=== PATIENT | male | born 1985 | race Caucasian/White ===

== ENCOUNTER 2019-08-12 18:28 | Emergency (ER) | payer BC, SELFPAY ==
[2019-08-12 18:29] VITALS: BP 143/97; PULSE 96; RESP 18; TEMP 36.6; O2SAT 98; BMI 40.0
[2019-08-12 19:10] LABS: UTC Influenza A Antigen Negative (Negative); UTC Influenza B Antigen Negative (Negative)
--- NOTE | 2019-08-12 19:22 | HMH.EDUTC ---
[facility] [place] Disposition Clinical Impression: Sore throat Sinusitis Qualifiers: Sinusitis location: unspecified location Chronicity: unspecified Qualified Code(s): J32.9 - Chronic sinusitis, unspecified Disposition: Home, Self-Care Condition on Discharge: Good Instructions: Sinusitis, Sinus Headache, DI for Sinusitis, DI for Cough -- Adult Additional Instructions: Start antibiotic. Sinus infections may take 2-3 days to notice much improvement so be sure to use conservative measures as discussed for symptoms Ok to continue Sudafed Flonase 2 spray in each nostril daily to help with nasal congestion, sinus an ear pressure/inflammation Lots of Fluids Sleep elevated Humidifer/vaporizer Augmentin can cause GI effects. Probiotics may help to prevent these symptoms Follow up with family doctor if no improvement or any worsening of symptoms *Monitor Temp, Over the counter Motrin or Tylenol as directed/as needed Tylenol every 4 hours and Motrin every 6 hours (as long as your family doctor has told you that you can take it) for fever or pain. and straight to ER if unable to lower temp less than 101.0 after medication given *Warm salt water gargles may help to soothe the throat *Throat Lozenges *Warm fluids *Sleep elevated *Humidifier/Vaporizer Follow up IMMEDIATELY for new or worsening symptoms or no Noticeable improvement over the next 48-72 hours. 911 for difficulty breathing or swallowing Prescriptions: Amoxicillin/Potassium Clav [Augmentin 875-125 Tablet] 1 tab PO Q12H 10 Days #20 tab Transmission Status: Pending to [facility] [place], [place] predniSONE [Prednisone 20mg Tab] 20 mg PO BID 5 Days #10 tab Transmission Status: Pending to [facility] [place], [place] Referrals: Nelson Schmitz [Primary Care Provider] - As needed Time of Disposition: 19:27 Medical Decision Making - Ray Inquiry Pt receiving controlled substance: No Ray was queried for this patient: No Vital Signs: 08/12/19 18:29 Temperature 97.9 F Temperature Source Oral Pulse Rate [Radial] 96 H Respiratory Rate 18 Blood Pressure [Right Arm] 143/97 H Blood Pressure Mean [Right Arm] 112 Blood Pressure Source [Right Arm] Automatic Cuff Blood Pressure Position [Right Arm] Sitting 02 Sat by Pulse Oximetry 98 Oxygen Delivery Method Room Air - Lab Data Lab results reviewed: Yes: I reviewed the patient's lab results. Lab Results 08/12/19 18:58: Influenza Type A Ag Negative, Influenza Type B Ag Negative [facility] [place] HPI - General Stated complaint: cough congestion headache Time Seen by Provider: 08/12/19 19:22 Mode of Arrival: Ambulatory Source of Information: Patient Limitations: No Limitations Description of Symptoms (Recalled from Triage Doc. by RN): COUGH, SORE THROAT, PRESSURE BEHIND EYES HEENT Symptoms (Recalled from RN notes): Yes Resp Symptoms (Recalled from RN notes): No Skin Symptoms (Recalled from RN notes): No MS Symptoms (Recalled from RN notes): No Functional Status (Recalled from RN notes): WNL - History of Present Illness Provider Complaint: Patient states that he has been having sinus pain and pressure, sore throat, drainage in the back of his throat and feeling like he has been ill for a couple of weeks and continued to get worse States that he was worried that he may have flu and wanted to get checked because he has a daughter at home - Related Data Home Medications Medication Instructions Recorded Confirmed OXcarbazepine [Oxcarbazepine] 300 mg PO TID 01/29/18 01/29/18 Topiramate 50 mg PO BID 01/29/18 01/29/18 Topiramate 100 mg PO BID 01/29/18 01/29/18 Previous Rx's Medication Instructions Recorded Amoxicillin/Potassium Clav 1 tab PO Q12H 10 Days #20 tab 08/12/19 [Augmentin 875-125 Tablet] predniSONE [Prednisone 20mg 20 mg PO BID 5 Days #10 tab 08/12/19 Tab] Allergies Allergy/AdvReac Type Severity Reaction Status Date / Time No Known Allergies Allergy Verified 01/29/18 2
[2019-08-12 19:36] VITALS: BP 143/97; PULSE 96; RESP 18; TEMP 36.6; O2SAT 98
== END 2019-08-12 19:36 | disposition home or self-care (01) ==
PROVIDERS: Emergency Provider Nurse Practitioner; PCP Nurse Practitioner Family
DX: J32.9 Chronic sinusitis, unspecified (principal)
CPT/HCPCS: 87804; 99201

== ENCOUNTER 2021-04-19 15:38 | Emergency (ER) | payer BC, SELFPAY ==
[2021-04-19 17:53] VITALS: BP 142/95; PULSE 72; RESP 18; TEMP 37.1; O2SAT 100; BMI 40.0
--- NOTE | 2021-04-19 17:59 | HMH.EDUTC ---
[facility] [place] Disposition Clinical Impression: Sinusitis Qualifiers: Sinusitis location: unspecified location Chronicity: acute Recurrence: non-recurrent Qualified Code(s): J01.90 - Acute sinusitis, unspecified Disposition: Home, Self-Care Condition on Discharge: Good Instructions: DI for Sinusitis, Preventing the Spread of Coronavirus Discharge Instructions, DI for COVID-19 (Suspected or Confirmed ) Additional Instructions: Drink plenty of fluids. Take tylenol or ibuprofen for pain or fever. Take the medications as directed. Follow up with your regular doctor. GO TO THE ER FOR ANY WORSENING SYMPTOMS Quarantine until you know the results of your covid-19 test. If it is positive, the health department should call you and give you further instructions about your length of Quarantine and other things. Notify your school or workplace of your results and follow their instructions regarding return to work/school. Prescriptions: Brompheniramine/Pseudoephed/Dm [Bromfed Dm Cough Syrup] 5 ml PO Q6HP PRN #240 ml PRN Reason: Cough Transmission Status: Pending to [facility] predniSONE [Deltasone 10mg tablet] 10 mg PO BID 3 Days #6 tab Transmission Status: Pending to [facility] Azithromycin [Z-John 250mg Tab*] 250 mg PO UD DOSE PK #6 tab Transmission Status: Pending to [facility] Referrals: Nelson Schmitz [Primary Care Provider] - Forms: Work/School Release Time of Disposition: 18:08 Medical Decision Making - Medical Records Medical records reviewed: No: I reviewed the patient's medical records. - Ary Inquiry Pt receiving controlled substance: No Vital Signs: 04/19/21 17:53 Temperature 98.7 F Temperature Source Oral Pulse Rate [Right Radial] 72 Respiratory Rate 18 Blood Pressure [Right Arm] 142/95 H Blood Pressure Mean [Right Arm] 110 Blood Pressure Source [Right Arm] Automatic Cuff Blood Pressure Position [Right Arm] Sitting 02 Sat by Pulse Oximetry 100 Oxygen Delivery Method Room Air Orders (Tests/Meds): ORDERS Category Date Time Status Covid-19 Nasal PCR ([facility]) Routine Lab 04/19/21 17:55 Ordered [facility] [place] HPI - General Stated complaint: sore throat,congestion,runny nose Time Seen by Provider: 04/19/21 17:59 Mode of Arrival: Ambulatory Source of Information: Patient Limitations: No Limitations Description of Symptoms (Recalled from Triage Doc. by RN): C/O runny nose, sore and scratchy throat and congestion x2-3 days HEENT Symptoms (Recalled from RN notes): Yes (sore throat, runny nose, congestion) Resp Symptoms (Recalled from RN notes): No Skin Symptoms (Recalled from RN notes): No MS Symptoms (Recalled from RN notes): No Functional Status (Recalled from RN notes): n/a - History of Present Illness Provider Complaint: He states that for the past 2 days he has had a runny nose, sinus congestion and he has felt bad. He denies any known covid exposure. His has had similar symptoms at his home. - Related Data Home Medications Medication Instructions Recorded Confirmed OXcarbazepine [Oxcarbazepine] 300 mg PO TID 01/29/18 01/29/18 Topiramate 50 mg PO BID 01/29/18 01/29/18 Topiramate 100 mg PO BID 01/29/18 01/29/18 Previous Rx's Medication Instructions Recorded Amoxicillin/Potassium Clav 1 tab PO Q12H 10 Days #20 tab 08/12/19 [Augmentin 875-125 Tablet] predniSONE [Prednisone 20mg 20 mg PO BID 5 Days #10 tab 08/12/19 Tab] Azithromycin [Z-John 250mg Tab*] 250 mg PO UD DOSE PK #6 tab 04/19/21 Brompheniramine/Pseudoephed/Dm 5 ml PO Q6HP PRN #240 ml 04/19/21 [Bromfed Dm Cough Syrup] predniSONE [Deltasone 10mg tablet] 10 mg PO BID 3 Days #6 tab 04/19/21 Allergies Allergy/AdvReac Type Severity Reaction Status Date / Time No Known Allergies Allergy Verified 01/29/18 21:51 - Worker's Comp Is this a Worker's Comp case?: No [facility] History - Hepatitis A Screen Drug use history?: No High risk sexual behaviors?: No History of sexua
[2021-04-19 18:11] VITALS: BP 142/95; PULSE 72; RESP 18; TEMP 37.1; O2SAT 100
[2021-04-20 21:12] LABS: UTC Strep Screen (Rapid) Negative (Negative)
== END 2021-04-19 18:12 | disposition home or self-care (01) ==
LOC: UTC 18:18
PROVIDERS: Emergency Provider Nurse Practitioner Family; PCP Nurse Practitioner Family
DX: J01.90 Acute sinusitis, unspecified (principal); Z20.822 Contact with and (suspected) exposure to COVID-19
CPT/HCPCS: 87880; 99203; G0463; U0003

== ENCOUNTER → 2021-05-08 14:26 | Outpatient (CLI) | payer BC, SELFPAY | PROVIDERS: Visit Provider Nurse Practitioner | DX: Z20.822 Contact with and (suspected) exposure to COVID-19 (principal); U07.1 COVID-19 | CPT/HCPCS: C9803; U0003; U0005 ==

== ENCOUNTER 2022-04-06 16:19 | Emergency (ER) | payer BC, SELFPAY ==
[2022-04-06 17:25] VITALS: BP 151/98; PULSE 116; RESP 18; TEMP 37.5; O2SAT 98; BMI 41.2
[2022-04-06 17:46] LABS: UTC Strep Screen (Rapid) Negative (Negative)
--- NOTE | 2022-04-06 17:47 | HMH.EDUTC ---
[facility] [place] Disposition Clinical Impression: Viral upper respiratory tract infection Disposition: Home, Self-Care Condition on Discharge: Good Instructions: DI for Viral Upper Respiratory Infection -- Adult, DI for COVID-19 (Suspected or Confirmed ), Preventing the Spread of Coronavirus Discharge Instructions, DI for Fever (Symptom) -- Adult Additional Instructions: *Monitor Temp, Over the counter Motrin or Tylenol as directed/as needed Tylenol every 4 hours and Motrin every 6 hours (as long as your family doctor has told you that you can take it) for fever or pain. and straight to ER if unable to lower temp less than 101.0 after medication given *Warm salt water gargles may help to soothe the throat *Throat Lozenges *Warm fluids like tea with honey may help to soothe the throat *Sleep elevated *Humidifier/Vaporizer Your throat swab was sent for culture. Those results are typically sent to your primary care. Be sure to follow up in 2-3 days with your family doctor/primary care physician if no improvement so they can review those result and treat if necessary. If you don?t have a primary care doctor, I recommend you get one but in the mean time, you will have to return to a walk in clinic Follow up IMMEDIATELY for new or worsening symptoms or no Noticeable improvement over the next 48-72 hours. 911 for difficulty breathing or swallowing You were tested for today for COVID19 your test result should be back in the next 24-48 hours, you may check your results on the [facility] My Health Portal Make sure to take your Vitamins Vit. C Vit D and Zinc if you can take them Referrals: Nelson Schmitz APRN [Primary Care Provider] - As needed Forms: Work/School Release Time of Disposition: 17:58 Medical Decision Making - Ray Inquiry Pt receiving controlled substance: No Ray was queried for this patient: No Vital Signs: 04/06/22 17:25 Temperature 99.5 F Temperature Source Oral Pulse Rate [Right Brachial] 116 H Respiratory Rate 18 Blood Pressure [Right Arm] 151/98 H Blood Pressure Mean [Right Arm] 115 Blood Pressure Source [Right Arm] Automatic Cuff Blood Pressure Position [Right Arm] Sitting 02 Sat by Pulse Oximetry 98 Oxygen Delivery Method Room Air - Lab Data Lab results reviewed: Yes: I reviewed the patient's lab results. Lab Results 04/06/22 17:35: Strep Scn Rapid Clinic Negative Orders (Tests/Meds): ORDERS Category Date Time Status Covid-19 Nasal PCR ([facility]) Routine Lab 04/06/22 17:50 Received Strep Screen Confirmation Stat Micro 04/06/22 17:35 Received [facility] UTC HPI - General Stated complaint: sore throat, cough charley Time Seen by Provider: 04/06/22 17:48 Mode of Arrival: Ambulatory Source of Information: Patient Limitations: No Limitations Description of Symptoms (Recalled from Triage Doc. by RN): PATIENT C/O SORE THROAT AND CONGESTION SINCE THIS MORNING HEENT Symptoms (Recalled from RN notes): Yes Resp Symptoms (Recalled from RN notes): No Skin Symptoms (Recalled from RN notes): No MS Symptoms (Recalled from RN notes): No Functional Status (Recalled from RN notes): WNL - History of Present Illness Provider Complaint: Patient state that he has been having sore throat, nasal congestion, low grade fever and body aches States that he was worried he may have strep throat or COVID so he came in to get checked out - Related Data Home Medications Medication Instructions Recorded Confirmed OXcarbazepine [Oxcarbazepine] 300 mg PO TID 01/29/18 04/06/22 Topiramate 50 mg PO BID 01/29/18 04/06/22 Topiramate 100 mg PO BID 01/29/18 04/06/22 Allergies Allergy/AdvReac Type Severity Reaction Status Date / Time No Known Allergies Allergy Verified 01/29/18 21:51 - Worker's Comp Is this a Worker's Comp case?: No [facility] History - Hepatitis A Screen Attestation statement:: This patient has been screened for Hepatitis A risk factors. I have reviewed the patient's past medical history: Yes
[2022-04-06 18:10] VITALS: BP 151/98; PULSE 116; RESP 18; TEMP 37.5; O2SAT 98
== END 2022-04-06 18:15 | disposition home or self-care (01) ==
PROVIDERS: Emergency Provider Nurse Practitioner; PCP Nurse Practitioner Family
DX: U07.1 COVID-19 (principal)
CPT/HCPCS: 87880; 99212; C9803; G0463; U0003; U0005

== ENCOUNTER 2022-07-03 09:10 | Emergency (ER) | payer BC, SELFPAY ==
[2022-07-03 10:30] VITALS: BP 133/93; PULSE 139; RESP 22; TEMP 37.9; O2SAT 100; BMI 40.1
[2022-07-03 10:45] VITALS: TEMP 39.1
[2022-07-03 10:51] LABS: UTC Influenza A Antigen Negative (Negative); UTC Influenza B Antigen Negative (Negative)
--- NOTE | 2022-07-03 10:53 | EXP.UTC ---
Discharge Plan Disposition Patient Disposition: Home, Self-Care Condition: Good Prescriptions Prescriptions: New oseltamivir [Tamiflu] 75 mg capsule 75 mg PO BID 5 Days Qty: 10 0RF ondansetron 4 mg tablet,disintegrating 4 mg PO Q8H PRN (Reason: nausea and vomiting) Qty: 10 0RF No Action oxcarbazepine 300 MG tablet 300 mg PO TID topiramate 100 MG tablet 100 mg PO BID topiramate 50 MG tablet 50 mg PO BID Referrals Follow up/Referrals: Nelson Schmitz APRN [Primary Care Provider] - See instructions Activity Restrictions/Add. Instructions Additional Instructions/Restrictions: You were tested for today for COVID19 your test result should be back in the next 24-48 hours, you may check your results on the [facility] my Health portal Lots of rest Increase Fluids water, Gatorade, powerade, pedialyte,if infant/toddler/child Alternate Tylenol and / or ibuprofen as discussed for fever, aches, chills Follow up IMMEDIATELY with your family doctor for new or worsening Symptoms OR no noticeable improvement over the next 48-72 hours, 911 for difficulty or breathing You or your child area contagious until no fever, aches, chills for 24 hours with medication for symptoms Help Prevent the spread of influenza: ?Wash your hands often. Use soap and water. Wash your hands after you use the bathroom, change a child's diapers, or sneeze. Wash your hands before you prepare or eat food. Use gel hand cleanser that has 60% alcohol, when soap and water are not available. Do not touch your eyes, nose, or mouth unless you have washed your hands first. Cover your mouth when you sneeze or cough. Cough into a tissue or the bend of your arm. If you use a tissue, throw it away immediately and wash your hands. Clean shared items with a germ-killing school cleaner. Clean table surfaces, doorknobs, and light switches. Do not share towels, silverware, and dishes with people who are sick. Wash bed sheets, towels, silverware, and dishes with soap and water. Wear a mask over your mouth and nose if you are sick. The face mask may help protect others from becoming infected with the flu. Wear the mask when in common areas of your home or if you seek care with a healthcare provider. Stay away from others if you are sick. Stay at home until 24 hours after your fever and symptoms are gone. Clinical Impressions Clinical Impression: Flu-like symptoms Stand Alone Forms Stand Alone Forms: Work/School Release Instructions Patient Instructions: DI for Viral Syndrome Discharge ED Provider: Teri Garcias [facility] General Stated complaint: sore throat, body aches, MEADOWS, fever Mode of Arrival: Ambulatory Source of Information: Patient Limitations: No Limitations Time Seen by Provider: 07/03/22 10:53 Description of Symptoms (Recalled from Triage Doc. by RN): PATIENT C/O DRY THROAT, BODY ACHES, FEVER, HEADADCHE, AND INCREASED HEART RATE THAT STARTED THIS MORNING HEENT Symptoms (Recalled from RN notes): Yes Resp Symptoms (Recalled from RN notes): No Skin Symptoms (Recalled from RN notes): No MS Symptoms (Recalled from RN notes): No Functional Status (Recalled from RN notes): WNL History of Present Illness Provider Complaint: Patient states that he woke up in the middle of the night last night with body aches, chills, fever, states he felt like his pulse rate went up when he had the fever, sore throat and headache State that it hit him hard and fast he felt fine when he laid down, State that daughter and father had the flu about a week ago and feels like he may have it now too Related Data Home Medications Medication Instructions Recorded Confirmed oxcarbazepine 300 mg tablet 300 mg PO TID seizures 01/29/18 04/06/22 topiramate 100 mg tablet 100 mg PO BID seizures 01/29/18 04/06/22 topiramate 50 mg tablet 50
[2022-07-03 11:30] VITALS: BP 133/93; PULSE 110; RESP 22; TEMP 38.8; O2SAT 100
[2022-07-03 19:03] LABS: UTC Strep Screen (Rapid) Negative (Negative)
== END 2022-07-03 11:53 | disposition home or self-care (01) ==
PROVIDERS: Emergency Provider Nurse Practitioner; PCP Nurse Practitioner Family
DX: J11.1 Influenza due to unidentified influenza virus with other respiratory manifestations (principal)
CPT/HCPCS: 87804; 87880; 99212; C9803; G0463; U0003; U0005

== ENCOUNTER 2022-09-12 18:14 | Emergency (ER) | payer BC, SELFPAY ==
[2022-09-12 18:20] VITALS: BP 127/98; PULSE 130; RESP 20; TEMP 37.7; O2SAT 98; BMI 38.0
--- NOTE | 2022-09-12 18:38 | EXP.UTC ---
Discharge Plan Disposition Patient Disposition: Home, Self-Care Condition: Good Prescriptions Prescriptions: New prednisone [prednisone] 20 mg tablet 20 mg PO BID 5 Days Qty: 10 0RF amoxicillin-pot clavulanate 875-125 mg Tablet 1 tab PO Q12H Qty: 20 0RF No Action oxcarbazepine 300 MG tablet 300 mg PO TID topiramate 100 MG tablet 100 mg PO BID topiramate 50 MG tablet 50 mg PO BID Referrals Follow up/Referrals: Provider,Referral, MD [Primary Care Provider] - See instructions Clinical Impressions Clinical Impression: Acute left otitis media Instructions Patient Instructions: DI for Otitis Media (Middle Ear Infection)-Child Discharge ED Provider: Carine Benítez [facility] [place] HPI General Stated complaint: sore throat,Body Aches MEADOWS Time Seen by Provider: 09/12/22 18:49 History of Present Illness Provider Complaint: Sore throat, body aches, headache since last night. Ears are painful. Nose is congested. Feels weak and tired. Not sure about fever. Mom has strep throat. Onset (ago): day(s) (1) Relieving factors: none Exacerbating factors: none Associated symptoms: fever/chills, headaches and malaise Treatments prior to arrival: NSAID Related Data Home Medications Medication Instructions Recorded Confirmed oxcarbazepine 300 mg tablet 300 mg PO TID seizures 01/29/18 09/12/22 topiramate 100 mg tablet 100 mg PO BID seizures 01/29/18 09/12/22 topiramate 50 mg tablet 50 mg PO BID seizures 01/29/18 09/12/22 Previous Rx's Medication Instructions Recorded amoxicillin 875 mg-potassium 1 tab PO Q12H #20 tabs 09/12/22 clavulanate 125 mg tablet prednisone 20 mg tablet 20 mg PO BID 5 days #10 tabs 09/12/22 Allergies Allergy/AdvReac Type Severity Reaction Status Date / Time No Known Allergies Allergy Verified 09/12/22 18:43 [facility] Disclaimer: The information contained in this section may have been updated after the patient was seen, as this information can be updated by other users. Medical History (Updated 09/12/22 @ 18:52 by JENNY Key) Migraine Seizures Social History (Updated 07/03/22 @ 10:50 by Porsha A Thomson, RN) Smoking Status: Never smoker alcohol intake: never current occupational status: other Travel in the last 8 weeks: None ROS Obtained: Yes All systems reviewed & no additional complaints except as documented Constitutional Constitutional: Reports fatigue, Reports fever(s) and Reports malaise ENT Ears, Nose, Mouth, and Throat: Reports otalgia and Reports sore throat Endocrine Endocrine: Reports fatigue Physical Exam General General appearance: alert and in no apparent distress Head Head exam: atraumatic, normocephalic and normal inspection Eye Eye exam: Present normal appearance, PERRL and EOMI ENT ENT exam: Present normal exam, normal oropharynx, mucous membranes moist and normal external ear exam Expanded ENT Exam TM/Canal exam: Left TM: erythema and bulging Throat exam: Present tonsillar erythema and tonsillomegaly Neck Neck exam: Present normal inspection, full ROM and trachea midline; Absent meningismus or lymphadenopathy Chest Chest inspection: Present normal inspection and symmetric chest wall rise; Absent tenderness Respiratory Respiratory exam: Present normal lung sounds bilaterally; Absent respiratory distress Cardiovascular Cardiovascular exam: Present regular rate and normal rhythm; Absent JVD Abdominal Exam Abdominal exam: Present soft and normal bowel sounds; Absent distention, tenderness or guarding Extremities Exam Extremities exam: Present normal inspection, full ROM and normal capillary refill; Absent calf tenderness Back Exam Back exam: Present normal inspection; Absent tenderness Neurological Exam Neurological exam: Present alert and oriented X3 Psychiatric Psychiatric exam: Present normal affect and normal mood Skin Skin exam: Present warm, dry, intact and normal color Lymphatic Lym
[2022-09-12 18:46] LABS: UTC Strep Screen (Rapid) Negative (Negative)
[2022-09-12 19:02] VITALS: BP 127/98; PULSE 130; RESP 20; TEMP 37.7; O2SAT 98
== END 2022-09-12 19:01 | disposition home or self-care (01) ==
PROVIDERS: Emergency Provider Physician Assistant
DX: H66.92 Otitis media, unspecified, left ear (principal)
CPT/HCPCS: 87880; 99212; 99213; G0463

== ENCOUNTER 2023-08-04 12:58 | Emergency (ER) | payer BC, SELFPAY ==
[2023-08-04 13:45] VITALS: BP 128/83; PULSE 97; RESP 18; TEMP 37.1; O2SAT 99; BMI 38.0
[2023-08-04 14:04] LABS: UTC Influenza A Antigen Negative (Negative); UTC Influenza B Antigen Negative (Negative); UTC Strep Screen (Rapid) Negative (Negative)
--- NOTE | 2023-08-04 14:20 | EXP.UTC ---
Discharge Plan Disposition Patient Disposition: Home, Self-Care Condition: Good Prescriptions Prescriptions: New amoxicillin-pot clavulanate [Augmentin] 500-125 mg tablet 1 tab PO Q12H Qty: 20 0RF promethazine-DM 6.25-15 mg/5 mL syrup 5 ml PO Q6H PRN (Reason: cough) Qty: 118 0RF No Action oxcarbazepine 300 MG tablet 300 mg PO TID topiramate 100 MG tablet 100 mg PO BID topiramate 50 MG tablet 50 mg PO BID Referrals Follow up/Referrals: Nelson Schmitz APRN [Primary Care Provider] - See instructions Clinical Impressions Clinical Impression: Acute upper respiratory infection Discharge ED Provider: Teri Garcias [facility] General Stated complaint: sore throat, cough loss of appetite Mode of Arrival: Ambulatory Source of Information: Patient Limitations: No Limitations Time Seen by Provider: 08/04/23 14:00 Description of Symptoms (Recalled from Triage Doc. by RN): sore throat, and cough HEENT Symptoms (Recalled from RN notes): Yes Resp Symptoms (Recalled from RN notes): No Skin Symptoms (Recalled from RN notes): No MS Symptoms (Recalled from RN notes): No Functional Status (Recalled from RN notes): n/a History of Present Illness Provider Complaint: Pt relates that he has been sick for the last 3 weeks and has been to his doctor twice. He relates that his sinus drainage has turned to a yellow green and he is coughing up the same color. He has taken Bromfed without any help. He states that his body aches really bad today and he is concerned as he will be visiting with family. Related Data Home Medications Medication Instructions Recorded Confirmed oxcarbazepine 300 mg tablet 300 mg PO TID seizures 01/29/18 08/04/23 topiramate 100 mg tablet 100 mg PO BID seizures 01/29/18 08/04/23 topiramate 50 mg tablet 50 mg PO BID seizures 01/29/18 08/04/23 Previous Rx's Medication Instructions Recorded amoxicillin 500 mg-potassium 1 tab PO Q12H #20 tabs 08/04/23 clavulanate 125 mg tablet (Augmentin) promethazine-DM 6.25 mg-15 mg/5 mL 5 ml PO Q6H PRN cough #118 mL 08/04/23 oral syrup Allergies Allergy/AdvReac Type Severity Reaction Status Date / Time No Known Allergies Allergy Verified 08/04/23 13:58 Worker's Comp Is this a Worker's Comp case?: No [facility] Disclaimer: The information contained in this section may have been updated after the patient was seen, as this information can be updated by other users. Medical History (Updated 08/04/23 @ 14:30 by Michelle Castañeda APRN) Migraine Seizures Social History Smoking Status: Never smoker alcohol intake: never current occupational status: other Travel in the last 8 weeks: None ROS Obtained: Yes All systems reviewed & no additional complaints except as documented Constitutional Constitutional: Reports system reviewed and no additional complaints, except as documented, Reports headache(s) and Reports malaise Eyes Eyes: Reports system reviewed and no additional complaints, except as documented ENT Ears, Nose, Mouth, and Throat: Reports system reviewed and no additional complaints, except as documented, Reports otalgia, Reports headache(s), Reports nasal discharge, Reports sinus pressure and Reports sore throat Cardiovascular Cardiovascular: Reports system reviewed and no additional complaints, except as documented Respiratory Respiratory: Reports system reviewed and no additional complaints, except as documented and Reports cough with sputum production Gastrointestinal Gastrointestingal: Reports system reviewed and no additional complaints, except as documented Genitourinary Male Genitourinary: Reports system reviewed and no additional complaints, except as documented Musculoskeletal Musculoskeletal: Reports system reviewed and no additional complaints, except as documented Integumentary/Breasts Skin/Breast: Reports system reviewed and no additional com
[2023-08-04 14:45] VITALS: BP 128/83; PULSE 97; RESP 18; TEMP 37.1; O2SAT 99
== END 2023-08-04 14:45 | disposition home or self-care (01) ==
PROVIDERS: Emergency Provider Nurse Practitioner; PCP Nurse Practitioner Family
DX: R05.9 Cough, unspecified (principal); J06.9 Acute upper respiratory infection, unspecified; R07.0 Pain in throat; R51.9 Headache, unspecified; H92.09 Otalgia, unspecified ear; M79.18 Myalgia, other site; G40.909 Epilepsy, unspecified, not intractable, without status epilepticus
CPT/HCPCS: 87635; 87804; 87880; 99212; 99214; G0463

== ENCOUNTER 2023-10-02 00:48 | Emergency (ER) | payer BC, SELFPAY ==
[2023-10-02 00:50] VITALS: BP 163/93; PULSE 128; RESP 22; TEMP 37.2; O2SAT 97; BMI 38.6
--- NOTE | 2023-10-02 00:54 | ECG_ITS ---
APPROVED REPORT Exam: Resting ECG HR:123 bpm ECG Measurements Heart Rate 123 AXES WV 168 P 60 QRSd 90 QRS 101 QT 302 T 15 QTc 375 Conclusion SINUS TACHYCARDIA RIGHT AXIS DEVIATION [QRS AXIS > 100] ABNORMAL ECG UNCONFIRMED REPORT Electronically signed by : MIKY SOLIZ, 10/02/2023 09:42:44
--- NOTE | 2023-10-02 01:03 | XR_ITS ---
PROCEDURE INFORMATION: Exam: XR Chest Exam date and time: 10/02/2023 1:12 AM Age: 38 years old Clinical indication: Fever; Additional info: Palpitations, fever TECHNIQUE: Imaging protocol: Radiologic exam of the chest. Views: 1 view. Total images: 1 COMPARISON: CR CXR2 XR chest AP 01/29/2018 10:27 PM FINDINGS: Tubes, catheters and devices: EKG leads are present. Lungs: Mild bibasilar crowding. No infiltrate, airspace consolidation or vascular congestion. No interstitial edema. Pleural spaces: Unremarkable. No pleural effusion. No pneumothorax. Heart/Mediastinum: Unremarkable. No cardiomegaly. No mediastinal widening or hilar enlargement. Bones/joints: Unremarkable. IMPRESSION: No radiographically acute cardiopulmonary process.
--- NOTE | 2023-10-02 01:10 | ED_ITS ---
Discharge Plan Disposition Patient Disposition: Home, Self-Care Condition: Good Prescriptions Prescriptions: New ondansetron 4 mg tablet,disintegrating 4 mg PO Q8H PRN (Reason: nausea and vomiting) 4 Days Qty: 12 0RF No Action amoxicillin-pot clavulanate [Augmentin] 500-125 mg tablet 1 tab PO Q12H Qty: 20 0RF promethazine-DM 6.25-15 mg/5 mL syrup 5 ml PO Q6H PRN (Reason: cough) Qty: 118 0RF oxcarbazepine 300 MG tablet 300 mg PO TID topiramate 100 MG tablet 100 mg PO BID topiramate 50 MG tablet 50 mg PO BID Referrals Follow up/Referrals: Geronimo Arana [Primary Care Provider] - See instructions Activity Restrictions/Add. Instructions Additional Instructions/Restrictions: You were evaluated in the emergency department today. At this time, we feel that your symptoms are most likely related to a combination of a viral infection as well as dehydration. Please slate picker your prescription for Zofran and take as needed for nausea. Hydrate is much as possible. Take Tylenol every 4 hours and ibuprofen every 6 hours as needed for pain and fever. Follow-up with your primary care provider for reassessment over the next few days. Return to the emergency department for any new or worsening symptoms. Clinical Impressions Clinical Impression: Acute viral syndrome, Fever, Dehydration Stand Alone Forms Stand Alone Forms: Work/School Release Instructions Patient Instructions: DI for Dehydration -- Adult, DI for Viral Syndrome, DI for Fever (Symptom) -- Adult Discharge ED Provider: Monika Anderson General Adult HPI General Chief complaint: Arrhythmia/Palpitations Stated complaint: palpitations. fever 102, muscle cramps Time Seen by Provider: 10/02/23 01:03 Mode of Arrival: Ambulatory Source of Information: Patient Limitations: No Limitations Description of Symptoms (Recalled from ER Triage Doc. by RN): patient ambulatory to Ed with complaints of palpitations. He reports it feels like my heart is beating out of my chest. Reports fever this afternoon of 102, dizzy when going from sitting to standing position, and dyspnec at rest. History of Present Illness HPI narrative: This patient is a 38-year-old male with history of hypertension who was recently started on losartan presenting to the emergency department for evaluation with concern for headache, palpitations, subjective fevers, lightheadedness, and generally feeling unwell. He states strep is going around his household currently. His symptoms started the afternoon of 10/01. He took ibuprofen approximately 2 hours ago with minimal improvement. He has not been able to sleep much at night given the symptoms. He denies any chest pain, abdominal pain, or other concerns, but he does note some nausea. No other concerns noted at this time. Related Data Home Medications Medication Instructions Recorded Confirmed oxcarbazepine 300 mg tablet 300 mg PO TID seizures 01/29/18 08/04/23 topiramate 100 mg tablet 100 mg PO BID seizures 01/29/18 08/04/23 topiramate 50 mg tablet 50 mg PO BID seizures 01/29/18 08/04/23 Previous Rx's Medication Instructions Recorded amoxicillin 500 mg-potassium 1 tab PO Q12H #20 tabs 08/04/23 clavulanate 125 mg tablet (Augmentin) promethazine-DM 6.25 mg-15 mg/5 mL 5 ml PO Q6H PRN cough #118 mL 08/04/23 oral syrup ondansetron 4 mg disintegrating 4 mg PO Q8H PRN nausea and 10/02/23 tablet vomiting 4 days #12 tabs Allergies Allergy/AdvReac Type Severity Reaction Status Date / Time No Known Allergies Allergy Verified 08/04/23 13:58 [facility] Disclaimer: The information contained in this section may have been updated after the patient was seen, as this information can be updated by other users. Medical History Migraine Seizures Social History Smoking Status: Current every day smoker alcohol intake: never current occupational status: other Travel in the last 8 weeks: None ROS Obtained: Yes All systems reviewed & no additional complaints except as documented Physical Exam General General appearance: alert and in no apparent distress Head Head exam: atraumatic and normocephalic Eye Eye exam: Present normal appearance, PERRL and EOMI ENT ENT exam: Present normal exam, normal oropharynx, mucous membranes moist and normal external ear exam Neck Neck exam: Present normal inspection, full ROM and trachea midline; Absent tenderness Chest Chest inspection: Present normal inspection and symmetric chest wall rise; Absent tenderness Respiratory Respiratory exam: Present normal lung sounds bilaterally; Absent respiratory distress, wheezes, stridor or accessory muscle use Cardiovascular Cardiovascular exam: Present normal rhythm and tachycardia Abdominal Exam Abdominal exam: Present soft; Absent distention, tenderness or guarding Extremities Exam Extremities exam: Present normal inspection, full ROM and normal capillary refill; Absent tenderness or edema Back Exam Back exam: Present normal inspection and full ROM; Absent tenderness Neurological Exam Neurological exam: Present alert, oriented X3, CN II-XII intact and normal gait; Absent motor sensory deficit Psychiatric Psychiatric exam: Present normal affect and normal mood Skin Skin exam: Present warm and dry Medical Decision Making Medical Records Medical records reviewed: Yes I reviewed the patient's medical records. Ray Inquiry Pt receiving controlled substance: No Vital Signs: 10/02/23 00:50 Temperature 99.0 F Temperature Source Oral Pulse Rate [Right] 128 H Respiratory Rate 22 Blood Pressure [Right Arm] 163/93 H Blood Pressure Mean [Right Arm] 116 Blood Pressure Source [Right Arm] Automatic Cuff 02 Sat by Pulse Oximetry 97 Oxygen Delivery Method Room Air Lab Data Lab results reviewed: Yes I reviewed the patient's lab results. Lab Results 10/02/23 01:00: WBC 9.5, RBC 5.39, Hgb 16.8, Hct 49.4, MCV 91.5, MCH 31.1, MCHC 33.9, RDW 13.8, Plt Count 152, MPV 8.2, Neut % (Auto) 87.7 H, Lymph % (Auto) 6.7 L, [place] % (Auto) 3.7, Eos % (Auto) 1.7, Baso % (Auto) 0.2, Neut # (Auto) 8.3 H, Lymph # (Auto) 0.6 L, [place] # (Auto) 0.4, Eos # (Auto) 0.2, Baso # (Auto) 0.0, Total Counted 100, Neutrophils % (Manual) 92 H, Lymphocytes % (Manual) 6 L, Monocytes % (Manual) 2, Platelet Estimate Normal, RBC Morphology Not Reportable, Anisocytosis 1+, Macrocytosis 1+, Stomatocytes 1+, Sodium 140, Potassium 3.7, Chloride 109 H, Carbon Dioxide 23, Anion Gap 11.7, BUN 20, Creatinine 1.30 H, Estimated Creat Clear 144, Estimated GFR 62, Est GFR ( Amer) 76, Glucose 129 H, Calcium 8.9, Phosphorus 2.7, Magnesium 1.7, Total Bilirubin 0.7, AST 31, ALT 46, Alkaline Phosphatase 75, Troponin I < 0.01, Total Protein 7.2, Albumin 4.2, Globulin 3.0, Albumin/Globulin Ratio 1.4, Lipase 75, TSH 2.02, Thyroxine (T4) 4.9 L 10/02/23 01:15: SARS-CoV-2 (PCR) Not detected, Influenza A Untype (PCR) Not detected, Influenza Type B (PCR) Not detected 10/02/23 01:20: Group A Strep Rapid Negative 10/02/23 01:42: C-Reactive Protein 17.3 H, Procalcitonin 0.486 10/02/23 02:40: Urine Color Yellow, Urine Appearance Clear, Urine pH 6.0, Ur Specific [place] 1.025, Urine Protein Negative, Urine Glucose (UA) Negative, Urine Ketones Negative, Urine Blood Negative, Urine Nitrate Negative, Urine Bilirubin Negative, Urine Urobilinogen 0.2, Ur Leukocyte Esterase Negative, Urine RBC None, Urine WBC None, Ur Squamous Epith Cells Occasional, Urine Bacteria Trace, Urine Mucus 2+ 10/02/23 01:00 10/02/23 01:00 Orders (Tests/Meds): ED MEDICATIONS Discontinued Medications Generic Name Dose Route Start Last Admin Trade Name Kellie PRN Reason Stop Dose Admin Acetaminophen 1,000 mg 10/02/23 01:09 10/02/23 01:21 Acetaminophen 1,000mg/100ml Vial IV 10/02/23 01:10 1,000 mg ONCE ONE Administration Lactated Ringer's 1,000 mls @ 999 mls/hr 10/02/23 01:09 10/02/23 01:21 Lactated Ringer's 1000 Ml Bag IV 10/02/23 02:09 999 mls/hr .Q1H1M ONE Administration Lactated Ringer's 1,000 mls @ 999 mls/hr 10/02/23 01:53 Lactated Ringer's 1000 Ml Bag IV 10/02/23 02:53 .Q1H1M ONE Ondansetron HCl 4 mg 10/02/23 01:09 10/02/23 01:21 Ondansetron 4mg/2ml Vial IV 10/02/23 01:10 4 mg ONCE ONE Administration ORDERS Category Date Time Status XR chest portable Stat Exams 10/02/23 01:03 Completed C-Reactive Protein Stat Lab 10/02/23 01:42 Completed Complete Blood Count Auto Diff Stat Lab 10/02/23 01:00 Completed Comprehensive Metabolic Panel Stat Lab 10/02/23 01:00 Completed Lipase Stat Lab 10/02/23 01:00 Completed Magnesium Stat Lab 10/02/23 01:00 Completed Phosphorous Stat Lab 10/02/23 01:00 Completed Procalcitonin Stat Lab 10/02/23 01:42 Completed Rapid PCR Covid and Flu A/B Stat Lab 10/02/23 01:15 Completed Strep Scrn Group A (Rapid) Stat Lab 10/02/23 01:20 Completed T4 (Thyroxine) Stat Lab 10/02/23 01:00 Completed Thyroid Stimulating Hormone Stat Lab 10/02/23 01:00 Completed Troponin I Q3H Lab 10/02/23 04:15 Ordered Troponin I Q3H Lab 10/02/23 07:15 Ordered Troponin I Stat Lab 10/02/23 01:00 Completed Urinalysis and Microscopic Stat Lab 10/02/23 02:40 Completed Strep Screen Confirmation Stat Micro 10/02/23 01:20 Received ECG Data Tracing #1: I reviewed this ECG and interpreted as documented below: Sinus tachycardia with a ventricular rate of [address] changes concerning for ischemia. Normal intervals. ECG initial impression date: 10/02/23 ECG initial impression time: 00:55 Medical Decision Narrative: In summary, this patient is a 38-year-old male presenting to the Emergency Department for evaluation of palpitations, headache, fevers, congestion, and nausea. Differential diagnoses considered include but are not limited to viral syndrome, strep pharyngitis, pneumonia, dehydration, electrolyte derangements, dysrhythmia. Ruling out the most morbid conditions drove assessment. On exam, the patient is tachycardic with heart rate in the 120s. Exam is otherwise reassuring. Based on constellation of symptoms, I feel patient likely has a viral syndrome. Illness, including strep, has been going around their household. Workup included CBC, CMP, lipase, TSH, T4, magnesium, phosphorus, strep swab, viral swab, urinalysis, and chest x-ray. EKG demonstrates sinus tachycardia with no other concerns. Patient was given a bolus of IV fluids as well as IV acetaminophen and Zofran for symptomatic improvement. I independently interpreted x-ray prior to the radiologist read and noted no acute focal consolidation. Please see their read for final interpretation. Labs were obtained that demonstrated no significant leukocytosis, no urinary tract mention, negative strep swab, and negative COVID/flu swab. On reassessment, patient had significant improvement after administration of interventions as above. His tachycardia significantly improved, and he is feeling much better. Though he is negative for COVID and flu, feel he likely rodriguez s another viral syndrome, especially given sick contacts at home and his constellation of symptoms. Given that he is well-appearing without meeting sepsis/SIRS criteria and no notable source of bacterial infection, feel that he is appropriate for discharge with instructions for supportive management of viral syndrome. He was given prescription for Zofran, instructions for also patient follow-up, and strict return precautions. He was discharged in stable condition after all questions were answered. Critical Care Critical Care Time Critical Care Time: No
[2023-10-02 01:13] LABS: Basophils % 0.2 % (0.1-2.0); Eosinophils # 0.2 K/mm3 (0.0-0.4); Eosinophils % 1.7 % (0.1-12.0); Hematocrit 49.4 % (42.0-52.0); Hemoglobin 16.8 g/dL (14.1-18.0); Lymphocytes # 0.6 K/mm3 (0.7-4.5); Lymphocytes % 6.7 % (10-50); Mean Corpuscular HGB Conc 33.9 g/dL (31.8-35.4); Mean Corpuscular Hemoglobin 31.1 pg (27.0-31.2); Mean Corpuscular Volume 91.5 fl (80-94); Mean Platelet Volume 8.2 fl (7.4-10.4); Monocytes # 0.4 K/mm3 (0.1-1.0); Monocytes % 3.7 % (1.7-9.3); Neutrophils # 8.3 K/mm3 (1.8-7.8); Neutrophils % 87.7 % (37.0-80.0); Platelet Count 152 K/mm3 (142-424); Red Blood Count 5.39 M/mm3 (4.60-6.20); Red Cell Distribution Width 13.8 % (11.5-17.5); White Blood Count 9.5 K/mm3 (4.8-10.8)
[2023-10-02 01:17] LABS: Alanine Aminotransferase 46 U/L (12-78); Albumin Level 4.2 g/dl (3.5-5.0); Albumin/Globulin Ratio 1.4 (1.1-1.8); Alkaline Phosphatase 75 U/L (38-126); Anion Gap 11.7 mEq/L (5-15); Aspartate Amino Transferase 31 U/L (17-59); Bilirubin,Total 0.7 mg/dl (0.2-1.3); Blood Urea Nitrogen 20 mg/dl (9-20); Calcium 8.9 mg/dl (8.4-10.2); Carbon Dioxide 23 mmol/L (22.0-30.0); Chloride 109 mmol/L (98-107); Creatinine Clearance Estimated 144 mL/min (50-200); Estimated Glomerular Filt Rate 62 ml/min (>60); GFR (African American) 76 ML/MIN (>60); Glucose 129 mg/dl (74-100); Lipase 75 U/L (23-300); Magnesium 1.7 mg/dl (1.6-2.3); Phosphorous 2.7 mg/dl (2.5-4.5); Potassium 3.7 mmoL/L (3.5-5.1); Sodium 140 mmol/L (136-145); Total Protein,Serum 7.2 g/dl (6.3-8.2)
[2023-10-02 01:20] LABS: Coronavirus 19, PCR Not Detected (NotDetected); Influenza A, PCR Not Detected (NotDetected); Influenza B, PCR Not Detected (NotDetected)
[2023-10-02] MEDS: ONDANSETRON 4MG/2ML VIAL 4 MG IV (01:21)
[2023-10-02] MEDS: LACTATED RINGERS 1000ML 1,000 ML 999 ML IV (01:21)
[2023-10-02] MEDS: ACETAMINOPHEN 1,000MG/100ML VIAL 1000 MG IV (01:21)
[2023-10-02 01:22] LABS: MANUAL DIFFERENTIAL MANUAL DIFFERENTIAL (MANUAL DIFF)
[2023-10-02 01:30] LABS: Troponin I < 0.01 ng/ml (0.00-0.034)
[2023-10-02 01:34] LABS: T4 (Thyroxine) 4.9 ug/dl (5.53-11.0)
[2023-10-02 01:39] LABS: Strep Scrn Group A (Rapid) Negative (Negative)
[2023-10-02 01:48] LABS: Thyroid Stimulating Hormone 2.02 uIU/mL (0.465-4.68)
[2023-10-02 01:50] LABS: Anisocytosis 1+; Lymphocytes % 6 % (10-50); Macrocytosis 1+; Monocytes % 2 % (2-9); Neutrophils % 92 % (42-76); Platelet Estimate Normal; Stomatocytes 1+; Total Cells Counted 100
[2023-10-02 02:01] LABS: C-Reactive Protein 17.3 mg/L (0-4)
[2023-10-02 02:14] LABS: Procalcitonin 0.486 ng/mL (0.0-2.0)
[2023-10-02 02:44] LABS: Microscopic, Urine URINE MICROSCOPIC (MICROSCOPIC)
[2023-10-02 02:46] LABS: Appearance,Urine CLEAR (Clear); Bilirubin,Urine Negative (Negative); Blood, Urine Negative (Negative); Color,Urine YELLOW (Yellow); Glucose,Urine (UA) Negative (Negative); Ketones,Urine Negative (Negative); Leukocyte Esterase,Urine Negative (Negative); Nitrate,Urine Negative (Negative); Protein,Urine Negative (Negative); Specific Gravity, Urine 1.025 (1.005-1.030); Urobilinogen,Urine 0.2 EU/dl (0.2)
[2023-10-02 03:05] LABS: Bacteria,Urine Trace /lpf; Mucus,Urine 2+ /lpf; Squamous Epithelial Cell,Urine Occasional #/hpf (0-5)
[2023-10-02 03:13] VITALS: BP 150/85; PULSE 90; RESP 20; TEMP 37.1; O2SAT 96
== END 2023-10-02 03:14 | disposition home or self-care (01) ==
PROVIDERS: Emergency Provider Emergency Medicine; PCP Pediatrics
DX: E86.0 Dehydration (principal); R00.0 Tachycardia, unspecified; R50.9 Fever, unspecified; R51.9 Headache, unspecified; B34.9 Viral infection, unspecified; I10 Essential (primary) hypertension; F17.210 Nicotine dependence, cigarettes, uncomplicated
CPT/HCPCS: 71045; 80053; 81001; 83690; 83735; 84100; 84145; 84436; 84443; 84484; 85007; 85025; 86140; 87430; 87636; 93005; 96361; 96374; 96375; 99284; J0131; J2405

== ENCOUNTER 2023-12-28 17:27 | Emergency (ER) | payer BC, SELFPAY ==
[2023-12-28 17:55] VITALS: BP 103/85; PULSE 97; RESP 18; TEMP 37.3; O2SAT 96; BMI 37.5
--- NOTE | 2023-12-28 17:57 | EXP.UTC ---
Discharge Plan Disposition Patient Disposition: Home, Self-Care Condition: Good Prescriptions Prescriptions: New benzonatate 100 mg capsule 100 mg PO TIDP PRN (Reason: Cough) Qty: 30 0RF methylprednisolone 4 mg Tablets,Dose Pack 4 mg PO DIRECTED 6 Days Qty: 21 0RF Rx Instructions: Take 1 pack as directed for 6 days amoxicillin-pot clavulanate 875-125 mg Tablet 1 tab PO Q12H Qty: 20 0RF No Action oxcarbazepine 300 MG tablet 300 mg PO TID topiramate 100 MG tablet 100 mg PO BID topiramate 50 MG tablet 50 mg PO BID losartan 50 mg tablet 50 mg PO DAILY Patient Comments: TAKE 1 TABLET 1 TIME EACH DAY Referrals Follow up/Referrals: Geronimo Arana [Primary Care Provider] - See instructions Activity Restrictions/Add. Instructions Additional Instructions/Restrictions: Drink plenty of fluids. Take tylenol or ibuprofen for pain or fever. Take the medications as directed. Follow up with your regular doctor. GO TO THE ER FOR ANY WORSENING SYMPTOMS Clinical Impressions Clinical Impression: Pharyngitis, Sinusitis, Otitis media Instructions Patient Instructions: Sinusitis, DI for Sinusitis [place]charge ED Provider: Heri Meltno [facility] [place] General Stated complaint: fever, body aches, sore throat, dizzy Time Seen by Provider: 12/28/23 17:57 History of Present Illness Provider Complaint: He states that for the past 2 days he has had worsening sore throat, sinus congestion, and a dry cough. Related Data Home Medications Medication Instructions Recorded Confirmed oxcarbazepine 300 mg tablet 300 mg PO TID seizures 01/29/18 12/28/23 topiramate 100 mg tablet 100 mg PO BID seizures 01/29/18 12/28/23 topiramate 50 mg tablet 50 mg PO BID seizures 01/29/18 12/28/23 losartan 50 mg tablet 50 mg PO DAILY 12/28/23 12/28/23 Previous Rx's Medication Instructions Recorded amoxicillin 875 mg-potassium 1 tab PO Q12H #20 tabs 12/28/23 clavulanate 125 mg tablet benzonatate 100 mg capsule 100 mg PO TIDP PRN Cough #30 caps 12/28/23 methylprednisolone 4 mg tablets in 4 mg PO DIRECTED 6 days #21 tabs 12/28/23 a dose pack Allergies Allergy/AdvReac Type Severity Reaction Status Date / Time No Known Allergies Allergy Verified 12/28/23 18:06 [facility] Disclaimer: The information contained in this section may have been updated after the patient was seen, as this information can be updated by other users. Medical History Migraine Seizures Social History Smoking Status: Current every day smoker alcohol intake: never current occupational status: other Travel in the last 8 weeks: None ROS Obtained: Yes All systems reviewed & no additional complaints except as documented Constitutional Constitutional: Reports chills and Reports fever(s) Eyes Eyes: Denies eye discharge ENT Ears, Nose, Mouth, and Throat: Reports as per HPI Cardiovascular Cardiovascular: Denies chest pain Respiratory Respiratory: Denies chest congestion and Reports cough Gastrointestinal Gastrointestingal: Reports nausea; Denies abdominal pain, constipation, cramping, diarrhea or vomiting Musculoskeletal Musculoskeletal: Denies arthralgias Integumentary/Breasts Skin/Breast: Denies rash Neurologic Neurologic: Denies paresthesias Physical Exam General General appearance: alert and in no apparent distress Head Head exam: atraumatic, normocephalic and normal inspection Eye Eye exam: Present normal appearance, PERRL and EOMI ENT ENT exam: Present mucous membranes moist and normal external ear exam Expanded ENT Exam TM/Canal exam: Bilateral TM: erythema and bulging Nose exam: Absent sinus tenderness Mouth exam: Present normal external inspection; Absent drooling Teeth exam: Present normal inspection Throat exam: Present tonsillar erythema, tonsillomegaly and tonsillar exudate Neck Neck exam: Present normal inspection, full ROM and trachea midline; Absent tenderness, meningismus or lymphadenopathy Chest Chest inspection: Present normal inspection and symmetric chest wall rise; Absent tenderness Respiratory Respiratory exam: Present normal lung sounds bilaterally; Absent respiratory distress, wheezes, stridor or accessory muscle use Cardiovascular Cardiovascular exam: Present regular rate and normal rhythm; Absent systolic murmur or diastolic murmur Abdominal Exam Abdominal exam: Present soft and normal bowel sounds; Absent distention, tenderness, guarding, rebound or rigidity Extremities Exam Extremities exam: Present normal inspection and normal capillary refill; Absent calf tenderness Back Exam Back exam: Present normal inspection and full ROM; Absent tenderness, CVA tenderness (R) or CVA tenderness (L) Neurological Exam Neurological exam: Present alert, oriented X3 and CN II-XII intact Psychiatric Psychiatric exam: Present normal affect and normal mood Skin Skin exam: Present warm, dry, intact and normal color Medical Decision Making Medical Records Medical records reviewed: No I reviewed the patient's medical records. Ray Inquiry Pt receiving controlled substance: No Lab Data Lab results reviewed: Yes I reviewed the patient's lab results.
[2023-12-28 18:09] LABS: UTC Strep Screen (Rapid) Negative (Negative)
[2023-12-28 18:43] VITALS: BP 103/85; PULSE 97; RESP 18; TEMP 37.3; O2SAT 96
--- NOTE | 2023-12-28 18:43 | PC.NURSE ---
Sent covid to lab via tube system
== END 2023-12-28 18:43 | disposition home or self-care (01) ==
PROVIDERS: Emergency Provider Nurse Practitioner Family; PCP Pediatrics
DX: J01.90 Acute sinusitis, unspecified (principal); J02.9 Acute pharyngitis, unspecified; H66.93 Otitis media, unspecified, bilateral; R05.9 Cough, unspecified; R09.81 Nasal congestion; F17.210 Nicotine dependence, cigarettes, uncomplicated
CPT/HCPCS: 87635; 87880; 99212; 99214; G0463

== ENCOUNTER 2024-03-09 17:15 | Emergency (ER) | payer BC, SELFPAY ==
[2024-03-09 17:25] VITALS: BP 138/84; PULSE 76; RESP 21; TEMP 36.7; O2SAT 98; BMI 39.5
--- NOTE | 2024-03-09 17:44 | ED_ITS ---
Discharge Plan Disposition Patient Disposition: Home, Self-Care Condition: Good Prescriptions Prescriptions: New amoxicillin-pot clavulanate 875-125 mg Tablet 1 tab PO Q12H 10 Days Qty: 20 0RF No Action oxcarbazepine 300 MG tablet 300 mg PO TID topiramate 100 MG tablet 100 mg PO BID topiramate 50 MG tablet 50 mg PO BID losartan 50 mg tablet 50 mg PO DAILY Patient Comments: TAKE 1 TABLET 1 TIME EACH DAY benzonatate 100 mg capsule 100 mg PO TIDP PRN (Reason: Cough) Qty: 30 0RF methylprednisolone 4 mg Tablets,Dose Pack 4 mg PO DIRECTED 6 Days Qty: 21 0RF Rx Instructions: Take 1 pack as directed for 6 days amoxicillin-pot clavulanate 875-125 mg Tablet 1 tab PO Q12H Qty: 20 0RF Referrals Follow up/Referrals: Geronimo Arana [Primary Care Provider] - See instructions Activity Restrictions/Add. Instructions Additional Instructions/Restrictions: Keep wound area clean and dry watch wounds for sign of infection and if seen follow up immediately Allow steri strip to fall off on its own do not pull off Straight to ER if any life threatening symptoms Clinical Impressions Clinical Impression: Puncture wound Instructions Patient Instructions: DI for Puncture Wound, Sore Throat Print Language Print Language: German Discharge ED Provider: Teri Garcias [facility] General Stated complaint: right leg cut wont stop bleeding Mode of Arrival: Ambulatory Source of Information: Patient Limitations: No Limitations Time Seen by Provider: 03/09/24 17:44 Description of Symptoms (Recalled from Triage Doc. by RN): PATIENT C/O LACERATION TO RIGHT LOWER LEG THAT HAPPENED YESTERDAY AND CONTINUES TO BLEED INTERMITTENLY. PATIENT ALSO C/O SORE THROAT THAT STARTED APPROX 3 WEEKS AGO HEENT Symptoms (Recalled from RN notes): Yes Resp Symptoms (Recalled from RN notes): No Skin Symptoms (Recalled from RN notes): Yes MS Symptoms (Recalled from RN notes): No Functional Status (Recalled from RN notes): WNL History of Present Illness Provider Complaint: Patient states that he has been having sore throat on and off for several weeks States todays it was any better so he came in to get it checked worried he may have strep throat States also yesterday he hit his right lower leg on something getting out of [place] and he has a small cut on his right lower leg that has bleed on and off States he wasnt sure of his last tetanus so he came in to get it checked Related Data Home Medications ?Medication ?Instructions ?Recorded ?Confirmed oxcarbazepine 300 mg tablet 300 mg PO TID seizures 01/29/18 12/28/23 topiramate 100 mg tablet 100 mg PO BID seizures 01/29/18 12/28/23 topiramate 50 mg tablet 50 mg PO BID seizures 01/29/18 12/28/23 losartan 50 mg tablet 50 mg PO DAILY 12/28/23 12/28/23 Previous Rx's ?Medication ?Instructions ?Recorded amoxicillin 875 mg-potassium 1 tab PO Q12H #20 tabs 12/28/23 clavulanate 125 mg tablet benzonatate 100 mg capsule 100 mg PO TIDP PRN Cough #30 caps 12/28/23 methylprednisolone 4 mg tablets in 4 mg PO DIRECTED 6 days #21 tabs 12/28/23 a dose pack amoxicillin 875 mg-potassium 1 tab PO Q12H 10 days #20 tabs 03/09/24 clavulanate 125 mg tablet Allergies Allergy/AdvReac Type Severity Reaction Status Date / Time No Known Allergies Allergy Verified 12/28/23 18:06 Worker's Comp Is this a Worker's Comp case?: No [facility] Disclaimer: The information contained in this section may have been updated after the patient was seen, as this information can be updated by other users. Medical History Migraine Seizures Social History Smoking Status: Current every day smoker alcohol intake: never current occupational status: other Travel in the last 8 weeks: None ROS Obtained: Yes All systems reviewed & no additional complaints except as documented and Yes Systems reviewed as appropriate & no additional complaints except as documented Constitutional Constitutional: Reports system reviewed and no additional complaints, except as documented, Reports as per HPI, Denies body ache, Denies chills and Denies fever(s) ENT Ears, Nose, Mouth, and Throat: Reports system reviewed and no additional complaints, except as documented, Reports as per HPI and Reports sore throat Cardiovascular Cardiovascular: Reports system reviewed and no additional complaints, except as documented and Reports as per HPI Respiratory Respiratory: Reports system reviewed and no additional complaints, except as documented and Reports as per HPI Gastrointestinal Gastrointestingal: Reports system reviewed and no additional complaints, except as documented and as per HPI Integumentary/Breasts Skin/Breast: Reports system reviewed and no additional complaints, except as documented, Reports as per HPI and Reports other Comments: cut on right lower leg that continues to bleed on and off since yesterday Physical Exam General General appearance: alert and in no apparent distress ENT ENT exam: Present mucous membranes moist Expanded ENT Exam Throat exam: Present tonsillar erythema; Absent tonsillar exudate Respiratory Respiratory exam: Present normal lung sounds bilaterally; Absent respiratory distress or wheezes Cardiovascular Cardiovascular exam: Present regular rate, normal rhythm and normal heart sounds Expanded Lower Extremity Exam Right: Leg image: 2 1. small open wound noted no active bleeding noted at this time Neurological Exam Neurological exam: Present alert, oriented X3 and normal gait Medical Decision Making Ray Inquiry Pt receiving controlled substance: No Ray was queried for this patient: No Vital Signs: 03/09/24 17:25 Temperature 98.1 F Temperature Source Oral Pulse Rate [Left Brachial] 76 Respiratory Rate 21 Blood Pressure [Left Arm] 138/84 Blood Pressure Mean [Left Arm] 102 Blood Pressure Source [Left Arm] Automatic Cuff Blood Pressure Position [Left Arm] Sitting 02 Sat by Pulse Oximetry 98 Oxygen Delivery Method Room Air Orders (Tests/Meds): ED MEDICATIONS Generic Name Dose Route Start Last Admin Trade Name Freq PRN Reason Stop Dose Admin Tetanus/Reduced Diphtheria/Acell Pertussis 0.5 ml 03/09/24 17:43 Tet/Diphth/Pert-Adult 0.5ml Syringe IM 03/09/24 17:44 .ONCE ONE Medical Decision Narrative: Patient has small open puncture like wound on right lower leg no active bleeding at this time discussed closure with suture patient declined will clean wound well and place steri strip to close wound edges and give tetanus patient agreed
[2024-03-09] MEDS: TET/DIPHTH/PERT-ADULT 0.5ML SYRINGE 0.5 ML IM (17:50)
[2024-03-09 18:00] VITALS: BP 138/84; PULSE 76; RESP 21; TEMP 36.7; O2SAT 98
== END 2024-03-09 18:05 | disposition home or self-care (01) ==
PROVIDERS: Emergency Provider Nurse Practitioner; PCP Pediatrics
DX: S81.831A Puncture wound without foreign body, right lower leg, initial encounter (principal); Z23 Encounter for immunization; W26.8XXA Contact with other sharp object(s), not elsewhere classified, initial encounter
CPT/HCPCS: 90471; 90715; 99212; 99214; G0463

== ENCOUNTER 2024-05-30 10:41 | Emergency (ER) | payer BC, SELFPAY ==
[2024-05-30 10:50] VITALS: BP 127/92; PULSE 97; RESP 18; TEMP 36.9; O2SAT 100; BMI 38.6
[2024-05-30 11:08] LABS: UTC Strep Screen (Rapid) Negative (Negative)
--- NOTE | 2024-05-30 11:09 | ED_ITS ---
Discharge Plan Disposition Patient Disposition: Home, Self-Care Condition: Good Prescriptions Prescriptions: New amoxicillin 875 mg tablet 875 mg PO Q12H Qty: 20 0RF benzonatate 100 mg capsule 100 mg PO TIDP PRN (Reason: Cough) Qty: 30 0RF methylprednisolone 4 mg Tablets,Dose Pack 4 mg PO DIRECTED 6 Days Qty: 21 0RF Rx Instructions: Take 1 pack as directed for 6 days No Action amoxicillin-pot clavulanate 875-125 mg Tablet 1 tab PO Q12H 10 Days Qty: 20 0RF oxcarbazepine 300 MG tablet 300 mg PO TID topiramate 100 MG tablet 100 mg PO BID topiramate 50 MG tablet 50 mg PO BID losartan 50 mg tablet 50 mg PO DAILY Patient Comments: TAKE 1 TABLET 1 TIME EACH DAY benzonatate 100 mg capsule 100 mg PO TIDP PRN (Reason: Cough) Qty: 30 0RF methylprednisolone 4 mg Tablets,Dose Pack 4 mg PO DIRECTED 6 Days Qty: 21 0RF Rx Instructions: Take 1 pack as directed for 6 days amoxicillin-pot clavulanate 875-125 mg Tablet 1 tab PO Q12H Qty: 20 0RF Referrals Follow up/Referrals: Geronimo Arana [Primary Care Provider] - See instructions Activity Restrictions/Add. Instructions Additional Instructions/Restrictions: Drink plenty of fluids. Take tylenol or ibuprofen for pain or fever. Take the medications as directed. Follow up with your regular doctor. GO TO THE ER FOR ANY WORSENING SYMPTOMS Throw your tooth brush away and get a new one. Quarantine until you know the results of your covid-19 test. Notify your school or workplace of your results and follow their instructions regarding return to work/school. Clinical Impressions Clinical Impression: Otitis media, Pharyngitis, Acute viral syndrome Instructions Patient Instructions: Middle Ear Infection, DI for Pharyngitis/Tonsillopharyngitis -- Adult, DI for Viral Syndrome Print Language Print Language: Mongolian Discharge ED Provider: Heri Melton [facility] General Stated complaint: sore throat, body aches, fever 101, headache, Mode of Arrival: Ambulatory Source of Information: Patient Limitations: No Limitations Time Seen by Provider: 05/30/24 11:06 Description of Symptoms (Recalled from Triage Doc. by RN): PATIENT C/O SORE THROAT, BODY ACHES, AND FEVER THAT STARTED THIS MORNING HEENT Symptoms (Recalled from RN notes): Yes Resp Symptoms (Recalled from RN notes): No Skin Symptoms (Recalled from RN notes): No MS Symptoms (Recalled from RN notes): No Functional Status (Recalled from RN notes): WNL Related Data Home Medications ?Medication ?Instructions ?Recorded ?Confirmed oxcarbazepine 300 mg tablet 300 mg PO TID seizures 01/29/18 12/28/23 topiramate 100 mg tablet 100 mg PO BID seizures 01/29/18 12/28/23 topiramate 50 mg tablet 50 mg PO BID seizures 01/29/18 12/28/23 losartan 50 mg tablet 50 mg PO DAILY 12/28/23 12/28/23 Previous Rx's ?Medication ?Instructions ?Recorded amoxicillin 875 mg-potassium 1 tab PO Q12H #20 tabs 12/28/23 clavulanate 125 mg tablet benzonatate 100 mg capsule 100 mg PO TIDP PRN Cough #30 caps 12/28/23 methylprednisolone 4 mg tablets in 4 mg PO DIRECTED 6 days #21 tabs 12/28/23 a dose pack amoxicillin 875 mg-potassium 1 tab PO Q12H 10 days #20 tabs 03/09/24 clavulanate 125 mg tablet amoxicillin 875 mg tablet 875 mg PO Q12H #20 tabs 05/30/24 benzonatate 100 mg capsule 100 mg PO TIDP PRN Cough #30 caps 05/30/24 methylprednisolone 4 mg tablets in 4 mg PO DIRECTED 6 days #21 tabs 05/30/24 a dose pack Allergies Allergy/AdvReac Type Severity Reaction Status Date / Time No Known Allergies Allergy Verified 12/28/23 18:06 Worker's Comp Is this a Worker's Comp case?: No [facility] Disclaimer: The information contained in this section may have been updated after the patient was seen, as this information can be updated by other users. Medical History Migraine Seizures Social History Smoking Status: Current every day smoker alcohol intake: never current occupational status: other Travel in the last 8 weeks: None ROS Obtained: Yes All systems reviewed & no additional complaints except as documented Constitutional Constitutional: Denies chills, Reports fever(s) and Reports poor appetite Eyes Eyes: Denies eye discharge ENT Ears, Nose, Mouth, and Throat: Denies ear discharge, Reports otalgia, Denies hearing loss, Denies sinus pain and Reports sore throat Cardiovascular Cardiovascular: Denies chest pain and Denies dyspnea Respiratory Respiratory: Denies chest congestion, Reports cough and Denies dyspnea Gastrointestinal Gastrointestingal: Denies abdominal pain, diarrhea, nausea or vomiting Musculoskeletal Musculoskeletal: Denies arthralgias Integumentary/Breasts Skin/Breast: Denies rash Physical Exam General General appearance: alert and in no apparent distress Head Head exam: atraumatic, normocephalic and normal inspection Eye Eye exam: Present normal appearance; Absent PERRL or EOMI ENT ENT exam: Present mucous membranes moist and normal external ear exam Expanded ENT Exam TM/Canal exam: Bilateral TM: erythema, bulging and effusion Nose exam: Absent sinus tenderness Nasal speculum exam: Bilateral: normal Mouth exam: Present normal external inspection and other; Absent drooling Teeth exam: Present normal inspection Throat exam: Present tonsillar erythema and tonsillomegaly Neck Neck exam: Present normal inspection, full ROM and trachea midline; Absent tenderness, meningismus or lymphadenopathy Chest Chest inspection: Present normal inspection and symmetric chest wall rise; Ab sent tenderness Respiratory Respiratory exam: Present normal lung sounds bilaterally; Absent respiratory distress, wheezes or stridor Cardiovascular Cardiovascular exam: Present regular rate, normal rhythm and normal heart sounds; Absent tachycardia or irregular rhythm Abdominal Exam Abdominal exam: Present soft and normal bowel sounds; Absent distention, tenderness, guarding, rebound or rigidity Extremities Exam Extremities exam: Present normal inspection and normal capillary refill; Absent tenderness, joint swelling or calf tenderness Back Exam Back exam: Present normal inspection and full ROM; Absent tenderness, CVA tenderness (R) or CVA tenderness (L) Neurological Exam Neurological exam: Present alert, oriented X3, CN II-XII intact, normal gait and reflexes normal; Absent motor sensory deficit Psychiatric Psychiatric exam: Present normal affect and normal mood Skin Skin exam: Present warm, dry, intact and normal color Lymphatic Lymphatic Findings: no adenopathy Medical Decision Making Medical Records Medical records reviewed: No I reviewed the patient's medical records. Screening: Per USPSTF and CDC recommendations, given the prevalence of disease in our region, it is our hospital?s policy to screen for HIV and viral Hepatitis for all patients aged 18 and over and those with ongoing risk factors. Ray Inquiry Pt receiving controlled substance: No Vital Signs: 05/30/24 10:50 Temperature 98.5 F Temperature Source Oral Pulse Rate [Left Brachial] 97 H Respiratory Rate 18 Blood Pressure [Left Arm] 127/92 H Blood Pressure Mean [Left Arm] 103 Blood Pressure Source [Left Arm] Automatic Cuff Blood Pressure Position [Left Arm] Sitting 02 Sat by Pulse Oximetry 100 Oxygen Delivery Method Room Air Lab Data Lab results reviewed: Yes I reviewed the patient's lab results. Lab Results 05/30/24 10:53: Strep Scn [facility] Negative
[2024-05-30 11:15] VITALS: BP 127/92; PULSE 97; RESP 18; TEMP 36.9; O2SAT 100
[2024-05-30 11:23] LABS: Coronavirus 19, PCR Not Detected (NotDetected); Influenza A, PCR Not Detected (NotDetected); Influenza B, PCR Not Detected (NotDetected)
== END 2024-05-30 11:18 | disposition home or self-care (01) ==
PROVIDERS: Emergency Provider Nurse Practitioner Family; PCP Pediatrics
DX: B34.9 Viral infection, unspecified (principal); H66.90 Otitis media, unspecified, unspecified ear; J02.9 Acute pharyngitis, unspecified; M79.10 Myalgia, unspecified site; R50.9 Fever, unspecified; R51.9 Headache, unspecified; H92.03 Otalgia, bilateral
CPT/HCPCS: 87636; 87880; 99212; G0381

== ENCOUNTER 2024-07-15 18:03 | Emergency (ER) | payer BC, SELFPAY ==
[2024-07-15 18:14] VITALS: BP 142/90; PULSE 61; RESP 18; TEMP 36.6; O2SAT 98; BMI 39.9
--- NOTE | 2024-07-15 18:23 | EXP.UTC ---
Discharge Plan Disposition Patient Disposition: Home, Self-Care Condition: Good Prescriptions Prescriptions: New azithromycin [Zithromax] 250 mg tablet 250 mg PO UD DOSE PK Qty: 6 0RF Rx Instructions: Take two (2) tablets today, then one (1) tablet days #2 thru #5 benzonatate 100 mg capsule 100 mg PO TIDP PRN (Reason: Cough) Qty: 30 0RF methylprednisolone 4 mg Tablets,Dose Pack 4 mg PO DIRECTED 6 Days Qty: 21 0RF Rx Instructions: Take 1 pack as directed for 6 days No Action amoxicillin-pot clavulanate 875-125 mg Tablet 1 tab PO Q12H 10 Days Qty: 20 0RF oxcarbazepine 300 MG tablet 300 mg PO TID topiramate 100 MG tablet 100 mg PO BID topiramate 50 MG tablet 50 mg PO BID losartan 50 mg tablet 50 mg PO DAILY Patient Comments: TAKE 1 TABLET 1 TIME EACH DAY benzonatate 100 mg capsule 100 mg PO TIDP PRN (Reason: Cough) Qty: 30 0RF methylprednisolone 4 mg Tablets,Dose Pack 4 mg PO DIRECTED 6 Days Qty: 21 0RF Rx Instructions: Take 1 pack as directed for 6 days amoxicillin-pot clavulanate 875-125 mg Tablet 1 tab PO Q12H Qty: 20 0RF amoxicillin 875 mg tablet 875 mg PO Q12H Qty: 20 0RF benzonatate 100 mg capsule 100 mg PO TIDP PRN (Reason: Cough) Qty: 30 0RF methylprednisolone 4 mg Tablets,Dose Pack 4 mg PO DIRECTED 6 Days Qty: 21 0RF Rx Instructions: Take 1 pack as directed for 6 days Referrals Follow up/Referrals: Geronimo Arana [Primary Care Provider] - See instructions Activity Restrictions/Add. Instructions Additional Instructions/Restrictions: Drink plenty of fluids. Take tylenol or ibuprofen for pain or fever. Take the medications as directed. Follow up with your regular doctor. GO TO THE ER FOR ANY WORSENING SYMPTOMS Clinical Impressions Clinical Impression: Acute bronchitis, Sinusitis Stand Alone Forms Stand Alone Forms: Work/School Release Instructions Patient Instructions: Sinusitis, DI for Sinusitis, Methylprednisolone, Azithromycin Print Language Print Language: Luxembourgish Discharge ED Provider: Heri Melton [facility] General Stated complaint: wheezy, runny nose Mode of Arrival: Ambulatory Source of Information: Patient Time Seen by Provider: 07/15/24 18:16 Description of Symptoms (Recalled from Triage Doc. by RN): STATE WHEEZY, WORSE AT NIGHT, CAN NOT LAY FLAT, SNEEZING AND COUGH HEENT Symptoms (Recalled from RN notes): Yes Resp Symptoms (Recalled from RN notes): Yes Skin Symptoms (Recalled from RN notes): No MS Symptoms (Recalled from RN notes): No Functional Status (Recalled from RN notes): WNL Related Data Home Medications ?Medication ?Instructions ?Recorded ?Confirmed oxcarbazepine 300 mg tablet 300 mg PO TID seizures 01/29/18 07/15/24 topiramate 100 mg tablet 100 mg PO BID seizures 01/29/18 12/28/23 topiramate 50 mg tablet 50 mg PO BID seizures 01/29/18 07/15/24 losartan 50 mg tablet 50 mg PO DAILY 12/28/23 12/28/23 Previous Rx's ?Medication ?Instructions ?Recorded amoxicillin 875 mg-potassium 1 tab PO Q12H #20 tabs 12/28/23 clavulanate 125 mg tablet benzonatate 100 mg capsule 100 mg PO TIDP PRN Cough #30 caps 12/28/23 methylprednisolone 4 mg tablets in 4 mg PO DIRECTED 6 days #21 tabs 12/28/23 a dose pack amoxicillin 875 mg-potassium 1 tab PO Q12H 10 days #20 tabs 03/09/24 clavulanate 125 mg tablet amoxicillin 875 mg tablet 875 mg PO Q12H #20 tabs 05/30/24 benzonatate 100 mg capsule 100 mg PO TIDP PRN Cough #30 caps 05/30/24 methylprednisolone 4 mg tablets in 4 mg PO DIRECTED 6 days #21 tabs 05/30/24 a dose pack azithromycin 250 mg tablet 250 mg PO UD DOSE PK #6 tabs 07/15/24 (Zithromax) benzonatate 100 mg capsule 100 mg PO TIDP PRN Cough #30 caps 07/15/24 methylprednisolone 4 mg tablets in 4 mg PO DIRECTED 6 days #21 tabs 07/15/24 a dose pack Allergies Allergy/AdvReac Type Severity Reaction Status Date / Time No Known Allergies Allergy Verified 12/28/23 18:06 Worker's Comp Is this a Worker's Comp case?: No [facility] Disclaimer: The information contained in this section may have been updated after the patient was seen, as this information can be updated by other users. Medical History Migraine Seizures Social History Smoking Status: Current every day smoker alcohol intake: never current occupational status: other ROS Obtained: Yes All systems reviewed & no additional complaints except as documented Constitutional Constitutional: Reports poor appetite Eyes Eyes: Reports system reviewed and no additional complaints, except as documented ENT Ears, Nose, Mouth, and Throat: Reports as per HPI Cardiovascular Cardiovascular: Reports system reviewed and no additional complaints, except as documented and Denies chest pain Respiratory Respiratory: Denies shortness of breath, Reports chest congestion, Reports cough, Denies stridor and Denies wheezing Gastrointestinal Gastrointestingal: Reports system reviewed and no additional complaints, except as documented; Denies abdominal pain, diarrhea or vomiting Musculoskeletal Musculoskeletal: Reports system reviewed and no additional complaints, except as documented and Denies arthralgias Integumentary/Breasts Skin/Breast: Reports system reviewed and no additional complaints, except as documented and Denies rash Neurologic Neurologic: Denies paresthesias Allergic/Immunologic Allergic/Immunologic: Denies wheezing Physical Exam General General appearance: alert and in no apparent distress Eye Eye exam: Present normal appearance, PERRL and EOMI ENT ENT exam: Present mucous membranes moist and normal external ear exam Expanded ENT Exam External ear exam: Present normal external inspection TM/Canal exam: Bilateral TM: erythema and bulging Nose exam: Absent sinus tenderness Nasal speculum exam: Bilateral: normal Mouth exam: Present normal external inspection; Absent drooling Teeth exam: Present normal inspection Throat exam: Present tonsillar erythema and tonsillomegaly Neck Neck exam: Present normal inspection, full ROM and trachea midline; Absent tenderness, lymphadenopathy or thyromegaly Chest Chest inspection: Present normal inspection and symmetric chest wall rise; Absent tenderness or rash Respiratory Respiratory exam: Present normal lung sounds bilaterally; Absent respiratory distress, wheezes, stridor or accessory muscle use Cardiovascular Cardiovascular exam: Present regular rate, normal rhythm and normal heart sounds Abdominal Exam Abdominal exam: Present soft; Absent distention, tenderness, guarding, rebound or rigidity Extremities Exam Extremities exam: Present normal inspection, full ROM and normal capillary refill; Absent tenderness or calf tenderness Back Exam Back exam: Present normal inspection and full ROM; Absent tenderness Neurological Exam Neurological exam: Present alert and oriented X3 Psychiatric Psychiatric exam: Present normal affect and normal mood Skin Skin exam: Present warm, dry, intact and normal color Lymphatic Lymphatic Findings: no adenopathy Medical Decision Making Medical Records Medical records reviewed: No I reviewed the patient's medical records. Screening: Per USPSTF and CDC recommendations, given the prevalence of disease in our region, it is our hospital?s policy to screen for HIV and viral Hepatitis for all patients aged 18 and over and those with ongoing risk factors. Ray Inquiry Pt receiving controlled substance: No Vital Signs: 07/15/24 18:14 Temperature 97.9 F Temperature Source Oral Pulse Rate [Right Radial] 61 Respiratory Rate 18 Blood Pressure [Left Arm] 142/90 H Blood Pressure Mean [Left Arm] 107 02 Sat by Pulse Oximetry 98 Lab Data Lab results reviewed: Yes I reviewed the patient's lab results.
[2024-07-15 19:19] VITALS: BP 142/90; PULSE 61; RESP 18; TEMP 36.6
== END 2024-07-15 19:19 | disposition home or self-care (01) ==
PROVIDERS: Emergency Provider Nurse Practitioner Family; PCP Pediatrics
DX: J20.9 Acute bronchitis, unspecified (principal)
CPT/HCPCS: 99213; G0381

== ENCOUNTER 2024-07-31 11:08 | Emergency (ER) | payer BC, SELFPAY ==
--- NOTE | 2024-07-31 11:10 | XR_ITS ---
PROCEDURE INFORMATION: Exam: XR Left Knee Exam date and time: 07/31/2024 11:04 AM Age: 39 years old Clinical indication: Pain; Knee; Left TECHNIQUE: Imaging protocol: Radiologic exam of the left knee. Views: 3 views. COMPARISON: No relevant prior studies available. FINDINGS: Bones/joints: Osseous structures of the knee normal. No fracture. No joint effusion. Soft tissues unremarkable. Soft tissues: See Bones/joints finding. IMPRESSION: Normal knee.
--- NOTE | 2024-07-31 11:54 | EXP.UTC ---
Discharge Plan Disposition Patient Disposition: Home, Self-Care Condition: Good Prescriptions Prescriptions: New ibuprofen [IBU] 800 mg tablet 800 mg PO Q8HP PRN (Reason: Moderate Pain) Qty: 30 0RF No Action topiramate 100 MG tablet 100 mg PO BID topiramate 50 MG tablet 50 mg PO BID losartan 50 mg tablet 50 mg PO DAILY Patient Comments: TAKE 1 TABLET 1 TIME EACH DAY Referrals Follow up/Referrals: Dick Cristobal DO [Staff Physician] - See instructions Geronimo Arana [Primary Care Provider] - See instructions Activity Restrictions/Add. Instructions Additional Instructions/Restrictions: Rest the extremity, Wear the emil wrap for compression, Elevate the extremity as tolerated while you are resting. Take ibuprofen for pain. I sent in a prescription to your pharmacy. Follow up with Dr. Cristobal (orthopedics). I put in a referral but you need to call his office and schedule an appointment. Follow up with your regular doctor. GO TO THE ER FOR ANY WORSENING SYMPTOMS Clinical Impressions Clinical Impression: Right knee sprain, Knee pain, right Stand Alone Forms Stand Alone Forms: Work/School Release Instructions Patient Instructions: DI for Knee Pain Print Language Print Language: Luxembourger Discharge ED Provider: Heri Melton [facility] General Stated complaint: left knee pain, no accident Time Seen by Provider: 07/31/24 11:54 Related Data Home Medications ?Medication ?Instructions ?Recorded ?Confirmed topiramate 100 mg tablet 100 mg PO BID seizures 01/29/18 07/31/24 topiramate 50 mg tablet 50 mg PO BID seizures 01/29/18 07/31/24 losartan 50 mg tablet 50 mg PO DAILY 12/28/23 07/31/24 Previous Rx's ?Medication ?Instructions ?Recorded ibuprofen 800 mg tablet (IBU) 800 mg PO Q8HP PRN Moderate Pain 07/31/24 #30 tabs Allergies Allergy/AdvReac Type Severity Reaction Status Date / Time No Known Allergies Allergy Verified 12/28/23 18:06 [facility] Disclaimer: The information contained in this section may have been updated after the patient was seen, as this information can be updated by other users. Medical History Migraine Seizures Social History Smoking Status: Current every day smoker alcohol intake: never current occupational status: other Travel in the last 8 weeks: None Have you lived/traveled outside [place] in past 30 days?: No Contact w/someone who lives/traveled outside [place] past 30 days?: No Exposure to someone with infectious disease in past 14 days?: No Do you have a fever (greater than 100.4 F or 38 C)?: No Have you tested positive for COVID-19: No Exposed to someone with COVID-19 in past 14 days?: No Do you have a sore throat?: No Do you have a cough?: No Do you have any weakness?: No Do you have any diarrhea?: No Are you experiencing any unusual bleeding?: No Do you have any muscle aches/pain?: No Do you have any abdominal pain?: No Are you experiencing loss of taste or smell?: No ROS Obtained: Yes All systems reviewed & no additional complaints except as documented Constitutional Constitutional: Denies chills and Denies fever(s) Eyes Eyes: Denies eye discharge ENT Ears, Nose, Mouth, and Throat: Denies dizziness, Denies otalgia and Denies sore throat Cardiovascular Cardiovascular: Denies chest pain Respiratory Respiratory: Denies shortness of breath, Denies chest congestion, Denies cough, Denies stridor and Denies wheezing Gastrointestinal Gastrointestingal: Denies nausea or vomiting Musculoskeletal Musculoskeletal: Reports as per HPI Integumentary/Breasts Skin/Breast: Denies rash Neurologic Neurologic: Denies dizziness and Denies paresthesias Allergic/Immunologic Allergic/Immunologic: Denies wheezing Physical Exam General General appearance: alert and in no apparent distress Head Head exam: atraumatic, normocephalic and normal inspection Eye Eye exam: Present normal appearance, PERRL and EOMI ENT ENT exam: Present normal exam, normal oropharynx, mucous membranes moist, TM's normal bilaterally and normal external ear exam Neck Neck exam: Present normal inspection, full ROM and trachea midline; Absent meningismus or lymphadenopathy Chest Chest inspection: Present normal inspection and symmetric chest wall rise; Absent tenderness Respiratory Respiratory exam: Present normal lung sounds bilaterally; Absent respiratory distress Cardiovascular Cardiovascular exam: Present regular rate and normal rhythm; Absent JVD Abdominal Exam Abdominal exam: Present soft and normal bowel sounds; Absent distention, tenderness or guarding Extremities Exam Extremities exam: Present normal inspection, full ROM and normal capillary refill; Absent calf tenderness Back Exam Back exam: Present normal inspection; Absent tenderness Neurological Exam Neurological exam: Present alert and oriented X3 Psychiatric Psychiatric exam: Present normal affect and normal mood Skin Skin exam: Present warm, dry, intact and normal color Lymphatic Lymphatic Findings: no adenopathy Medical Decision Making Medical Records Medical records reviewed: No I reviewed the patient's medical records. Screening: Per USPSTF and CDC recommendations, given the prevalence of disease in our region, it is our hospital?s policy to screen for HIV and viral Hepatitis for all patients aged 18 and over and those with ongoing risk factors. Ray Inquiry Pt receiving controlled substance: No Orders (Tests/Meds): ORDERS Category Date Time Status Knee XR left 3 views [XR knee LT 3V] Stat Exams 07/31/24 11:10 Completed
[2024-07-31 12:01] VITALS: BP 136/84; PULSE 99; RESP 20; TEMP 36.6; O2SAT 99; BMI 38.2
[2024-07-31 12:36] VITALS: BP 136/84; PULSE 99; RESP 20; TEMP 36.6
== END 2024-07-31 12:42 | disposition home or self-care (01) ==
PROVIDERS: Emergency Provider Nurse Practitioner Family; PCP Pediatrics
DX: M25.561 Pain in right knee (principal)
CPT/HCPCS: 73562; 99213; G0381